=== PATIENT | female | born 2000 | race Caucasian/White ===

== ENCOUNTER 2020-02-27 07:10 | Inpatient (IN) ==
[2020-02-27] MEDS ORDERED: Famotidine 20 MG/2 ML VIAL IVP PRN (08:13)
[2020-02-27] MEDS ORDERED: Naloxone 0.4 MG/ML INJ IVP PRN (08:13)
[2020-02-27] MEDS ORDERED: Ondansetron 4 MG/2 ML VIAL IVP PRN ×3 (08:13→16:02)
[2020-02-27] MEDS ORDERED: *HR* FentaNYL (PF) 100 MCG/2 ML VIAL IVP PRN (08:13)
[2020-02-27] MEDS ORDERED: Metoclopramide 10 MG/2 ML VIAL IVP PRN ×2 (08:13→16:02)
[2020-02-27] MEDS ORDERED: Ropivacaine/PF 0.2% 20 ML VIAL EP ONE (08:23)
[2020-02-27] MEDS ORDERED: *HR* FentaNYL (PF) 100 MCG/2 ML VIAL EP ONE (08:23)
[2020-02-27] MEDS ORDERED: EPHEDrine 50 MG/ML VIAL IVP PRN (08:23)
[2020-02-27 08:25] LABS: Basophils % 0.3 %; Eosinophils # 0.1 K/mcL (0.0-0.6); Eosinophils % 0.8 %; Hematocrit 35.5 % (35.3-44.9); Hemoglobin 12.2 g/dL (11.5-15.4); Immature Granulocytes % 0.6 % (0-4); Lymphocytes # 1.6 K/mcL (0.6-4.6); Lymphocytes % 17.9 %; Mean Corpuscular HGB Conc 34.4 g/dL (31.6-35.5); Mean Corpuscular Hemoglobin 30.4 pg (28.0-33.3); Mean Corpuscular Volume 88.5 fL (83.0-100.0); Mean Platelet Volume 10.4 fL (9.4-12.4); Monocytes # 0.6 K/mcL (0.0-1.3); Monocytes % 6.4 %; Neutrophils # 6.4 K/mcL (1.6-8.9); Platelet Count 206 K/mcL (140-400); Red Blood Count 4.01 M/mcL (3.82-4.97); Red Cell Distribution Width 12.5 % (11.5-14.5); White Blood Count 8.7 K/mcL (4.3-11.1)
[2020-02-27] MEDS ORDERED: *HR* FentaNYL (PF) 100 MCG/2 ML VIAL ONE ×2 (08:26→12:31)
[2020-02-27] MEDS ORDERED: Ropivacaine/PF 0.2% 20 ML VIAL ONE (08:26)
[2020-02-27] MEDS ORDERED: Epidural Premix (fent/bupiv) 110 ML EP SCH (08:30)
[2020-02-27] MEDS: Ringers Solution, Lactated 1,000 ML IVC SCH ×2 (10:19→11:37)
[2020-02-27] MEDS ORDERED: 0.9 % Sodium Chloride 1,000 ML ONE (10:42)
[2020-02-27 10:47] LABS: Amphetamine Screen,Urine Negative ng/mL (Cutoff=1000); Barbiturate Screen,Urine Negative ng/mL (Cutoff=200); Benzodiazepines Screen,Urine Negative ng/mL (Cutoff=200); Cannabinoid Screen,Urine Negative ng/mL (Cutoff = 50); Cocaine Screen,Urine Negative ng/mL (Cutoff= 300); Opiate Screen,Urine Negative ng/mL (Cutoff=300); Phencyclidine Screen,Urine Negative ng/mL (Cutoff=25)
[2020-02-27] MEDS ORDERED: Azithromycin 500 MG in 0.9 % Sodium Chloride 250 ML IVPB ONE (12:15)
[2020-02-27] MEDS ORDERED: *HR* Oxytocin 10 UNIT/ML VIAL IM ONE ×2 (12:25→12:53)
[2020-02-27] MEDS ORDERED: Chloroprocaine/PF 20 ML VIAL INFILT ONE (12:30)
[2020-02-27] MEDS ORDERED: *HR* Morphine Sulfate/PF 10 MG/10 ML AMPUL ONE (12:31)
[2020-02-27] MEDS ORDERED: *HR* HYDROmorphone PF 0.5 MG/0.5 ML SYRINGE IVP PRN (12:38)
[2020-02-27] MEDS ORDERED: Acetaminophen IV 1,000 MG/100 ML INFUS..BTL ONE (12:39)
[2020-02-27] MEDS ORDERED: Ringers Solution, Lactated 1,000 ML ONE (12:53)
[2020-02-27] MEDS ORDERED: Oxytocin 20 units/ LR 1000 mL 20 UNIT/1,000 ML BAG IVC SCH (16:02)
[2020-02-27] MEDS ORDERED: Sennosides 8.6 MG TABLET PO PRN (16:02)
[2020-02-27] MEDS ORDERED: Acetaminophen 325 MG TABLET PO PRN (16:02)
[2020-02-27] MEDS: Oxytocin 20 units/ LR 1000 mL 20 UNIT/1,000 ML BAG IVC SCH (16:18)
[2020-02-27] MEDS: *HR* OxyCODONE/APAP 5/325 TABLET PO PRN (18:46)
[2020-02-27] MEDS: Ibuprofen 600 MG TABLET PO PRN (19:34)
[2020-02-27] MEDS: metroNIDAZOLE 500 MG TABLET PO SCH ×2 (19:34)
[2020-02-28] MEDS: Oxytocin 20 units/ LR 1000 mL 20 UNIT/1,000 ML BAG IVC SCH (00:30)
[2020-02-28] MEDS: Ibuprofen 600 MG TABLET PO PRN ×3 (02:42→17:47)
[2020-02-28] MEDS: Simethicone 80 MG TAB.CHEW PO PRN ×2 (02:45→19:39)
[2020-02-28] MEDS: Prenatal Vit/FA 1 EACH TABLET PO SCH (08:12)
[2020-02-28] MEDS: metroNIDAZOLE 500 MG TABLET PO SCH ×3 (08:56→19:36)
[2020-02-28 09:42] LABS: Basophils % 0.3 %; Eosinophils # 0.1 K/mcL (0.0-0.6); Eosinophils % 0.7 %; Hematocrit 37.6 % (35.3-44.9); Hemoglobin 12.6 g/dL (11.5-15.4); Immature Granulocytes % 0.5 % (0-4); Lymphocytes # 1.3 K/mcL (0.6-4.6); Lymphocytes % 13.6 %; Mean Corpuscular HGB Conc 33.5 g/dL (31.6-35.5); Mean Corpuscular Hemoglobin 30.3 pg (28.0-33.3); Mean Corpuscular Volume 90.4 fL (83.0-100.0); Mean Platelet Volume 10.2 fL (9.4-12.4); Monocytes # 0.7 K/mcL (0.0-1.3); Monocytes % 7.4 %; Neutrophils # 7.5 K/mcL (1.6-8.9); Platelet Count 157 K/mcL (140-400); Red Blood Count 4.16 M/mcL (3.82-4.97); Red Cell Distribution Width 12.6 % (11.5-14.5); Segmented Neutrophils % 77.5 %; White Blood Count 9.7 K/mcL (4.3-11.1)
[2020-02-28] MEDS: *HR* OxyCODONE/APAP 5/325 TABLET PO PRN ×2 (13:11→19:37)
[2020-02-29] MEDS: metroNIDAZOLE 500 MG TABLET PO SCH (08:41)
[2020-02-29] MEDS: Prenatal Vit/FA 1 EACH TABLET PO SCH (08:41)
[2020-02-29] MEDS: Ibuprofen 600 MG TABLET PO PRN (08:42)
[2020-02-29 09:09] VITALS: BP 136/96
== END 2020-02-29 12:34 | disposition home or self-care (01) | DRG 788 ==
LOC: 1NENULAB → 1NENUOBS 16:00
PROVIDERS: ADMIT Advanced Practice Midwife; ATTEND Advanced Practice Midwife